=== PATIENT | female | born 1950 | race Two or more races ===

== ENCOUNTER 2018-01-29 19:19 | Inpatient (IN) | payer MEDICARE, OTHER ==
[~2018-01-29] VITALS: Ht 167.6 cm; Wt 76.2 kg
[2018-01-29 21:40] LABS: BASOPHILS # (AUTO) 0.1 K/uL (0.0-8.0); BASOPHILS % (AUTO) 0.5 % (0.0-2.0); EOSINOPHILS # (AUTO) 0.1 K/uL (0.0-0.7); EOSINOPHILS % (AUTO) 0.7 % (0.0-7.0); HEMATOCRIT 43.2 % (31.2-41.9); HEMOGLOBIN 14.5 g/dL (10.9-14.3); LYMPHOCYTES # (AUTO) 3.6 K/uL (20.0-40.0); LYMPHOCYTES % (AUTO) 25.8 % (20.5-51.5); MEAN CORPUSCULAR HEMOGLOBIN 30.1 uug (24.7-32.8); MEAN CORPUSCULAR HGB CONC 34 g/dL (32.3-35.6); MEAN CORPUSCULAR VOLUME 89.8 fL (75.5-95.3); MONOCYTES # (AUTO) 1.1 K/uL (2.0-10.0); MONOCYTES % (AUTO) 7.5 % (0.0-11.0); NEUTROPHILS # (AUTO) 9.2 K/uL (1.8-8.9); NEUTROPHILS % (AUTO) 65.5 % (38.5-71.5); PLATELET COUNT (AUTO) 245 K/uL (179-408); RED BLOOD CELL COUNT(AUTO) 4.81 MIL/uL (3.63-4.92)
[2018-01-29 21:48] LABS: CARBON DIOXIDE 27 mmol/L (21-32); CHLORIDE 104 mmol/L (98-107); CREATININE 0.6 mg/dL (0.6-1.3); GLUCOSE 142 mg/dL (74-106); UREA NITROGEN, BLOOD 21 mg/dL (7-18)
[2018-01-29 21:54] LABS: *BILIRUBIN,URIN NEGATIVE (NEGATIVE); *BLOOD, URINE Trace-intact (NEGATIVE); *CLARITY,URINE CLOUDY (CLEAR); *COLOR,URINE YELLOW (YELLOW); *KETONES,URINE 1+ (NEGATIVE); *PROTEIN,URINE NEGATIVE (NEGATIVE); LEUKOCYTE ESTERASE ,URINE 3+ (NEGATIVE); NITRITE, URINE NEGATIVE (NEGATIVE); UGLUCOSE NEGATIVE (NEGATIVE)
[2018-01-29 21:56] LABS: ETHANOL < 3 MG/DL (0-0)
[2018-01-29 22:00] LABS: ALANINE AMINOTRANSFERASE 35 U/L (14-59); ALKALINE PHOSPHATASE 99 U/L (50-136); ASPARTATE AMINOTRANSFERASE 25 U/L (15-37); BILIRUBIN,DIRECT 0.1 mg/dL (0.0-0.2); BILIRUBIN,TOTAL 0.5 mg/dL (0.2-1.0); TOTAL PROTEIN, SERUM 7.1 g/dL (6.4-8.2)
[2018-01-29 22:00] LABS: BACTERIA,URINE MODERATE /HPF (NONE SEEN); SQUAMOUS EPITHELIAL CELL,UR MANY /HPF (NONE SEEN); WBC,URINE 80-100 /HPF (0-3)
[2018-01-29 22:03] LABS: ACETAMINOPHEN < 2.0 ug/mL (10-30)
[2018-01-29 22:14] LABS: *AMPHETAMINE, URINE NEGATIVE (NEGATIVE); *BARBITURATE, URINE NEGATIVE (NEGATIVE); *CANNABINOID, URINE NEGATIVE (NEGATIVE); *COCCAINE, URINE NEGATIVE (NEGATIVE); *OPIATE, URINE NEGATIVE (NEGATIVE); *PHENCYCLIDINE SCREEN,URINE NEGATIVE (NEGATIVE)
[2018-01-29] MEDS ORDERED: CEPHALEXIN MONOHYDRATE 500 MG CAPSULE PO ONE (23:45)
[2018-01-29] MEDS ORDERED: CEPHALEXIN MONOHYDRATE 500 MG CAPSULE ONE (23:46)
[2018-01-30] MEDS ORDERED: BLOO-140 IN (00:49)
[2018-01-30] MEDS ORDERED: DEXT50DI8 IV (00:49)
[2018-01-30] MEDS ORDERED: LURA20TA PO (00:49)
[2018-01-30] MEDS ORDERED: GLUC1VIA4 IJ (00:49)
[2018-01-30] MEDS ORDERED: LOSA50TA21 PO (00:49)
[2018-01-30] MEDS ORDERED: TOLT4CAP PO (00:49)
[2018-01-30] MEDS ORDERED: QUET25TA PO (02:12)
[2018-01-30] MEDS ORDERED: TEMAZEPAM 7.5 MG CAPSULE PO PRN (02:30)
[2018-01-30] MEDS ORDERED: MAG HYDROX/AL HYDROX/SIMETH 30 ML LIQUID UDC PO PRN (02:30)
[2018-01-30] MEDS ORDERED: MAGNESIUM HYDROXIDE 30 ML LIQUID UDC PO PRN (02:30)
[2018-01-30] MEDS: ACETAMINOPHEN 325 MG TABLET PO PRN ×2 (02:54→11:41)
[2018-01-30 05:14] VITALS: BP 117/65
[2018-01-30 07:30] VITALS: BP 124/53
[2018-01-30] MEDS ORDERED: DEXTROSE 50% 50 ML DISP.SYRIN IV PRN (11:15)
[2018-01-30] MEDS: LOSARTAN POTASSIUM 50 MG TABLET PO SCH (11:45)
[2018-01-30] MEDS: INSULIN REGULAR, HUMAN 300 UNIT/3 ML VIAL SQ PRN ×2 (12:48→17:19)
[2018-01-30] MEDS: BLOOD SUGAR DIAGNOSTIC 1 EACH STRIP VI SCH ×3 (12:50→20:52)
[2018-01-30 15:11] VITALS: BP 138/62
[2018-01-30] MEDS ORDERED: IBUPROFEN 400 MG TABLET PO PRN (16:00)
[2018-01-30] MEDS: IBUPROFEN 400 MG TABLET PO PRN (17:48)
[2018-01-30] MEDS: CEPHALEXIN MONOHYDRATE 500 MG CAPSULE PO SCH (19:01)
[2018-01-30 20:00] VITALS: BP 139/73
[2018-01-30] MEDS: INSULIN REGULAR, HUMAN 300 UNITS/3 ML VIAL SQ PRN (20:57)
[2018-01-30] MEDS: INSULIN GLARGINE,HUM 300 UNITS/3 ML CARTRIDGE SQ SCH (20:58)
[2018-01-30] MEDS ORDERED: CARBAMAZEPINE 200 MG TABLET PO ONE (22:30)
[2018-01-30] MEDS ORDERED: ARIPIPRAZOLE 5 MG TABLET PO ONE (22:30)
[2018-01-31] MEDS: BLOOD SUGAR DIAGNOSTIC 1 EACH STRIP VI SCH ×4 (07:02→20:40)
[2018-01-31] MEDS: IBUPROFEN 400 MG TABLET PO PRN ×2 (07:57→21:06)
[2018-01-31 08:00] VITALS: BP 114/74
[2018-01-31] MEDS: LOSARTAN POTASSIUM 50 MG TABLET PO SCH (08:34)
[2018-01-31] MEDS: CEPHALEXIN MONOHYDRATE 500 MG CAPSULE PO SCH ×2 (08:34→17:51)
[2018-01-31] MEDS: CARBAMAZEPINE 200 MG TABLET PO SCH ×2 (08:35→20:41)
[2018-01-31] MEDS: TOLTERODINE LA 2 MG CAP.SR.24H PO SCH (08:35)
[2018-01-31] MEDS ORDERED: BENZTROPINE MESYLATE 1 MG TABLET PO SCH (09:00)
[2018-01-31] MEDS ORDERED: HALOPERIDOL 5 MG TABLET PO SCH (09:00)
[2018-01-31] MEDS: INSULIN REGULAR, HUMAN 300 UNIT/3 ML VIAL SQ PRN ×2 (12:04→17:34)
[2018-01-31 16:20] VITALS: BP 116/70
[2018-01-31 20:25] VITALS: BP 117/70
[2018-01-31] MEDS: ARIPIPRAZOLE 5 MG TABLET PO SCH (20:41)
[2018-01-31] MEDS: INSULIN REGULAR, HUMAN 300 UNITS/3 ML VIAL SQ PRN (20:46)
[2018-01-31] MEDS: INSULIN GLARGINE,HUM 300 UNITS/3 ML CARTRIDGE SQ SCH (20:46)
[2018-02-01] MEDS: BLOOD SUGAR DIAGNOSTIC 1 EACH STRIP VI SCH ×4 (06:34→21:35)
[2018-02-01 07:30] VITALS: BP 125/74
[2018-02-01] MEDS: LOSARTAN POTASSIUM 50 MG TABLET PO SCH (08:35)
[2018-02-01] MEDS: TOLTERODINE LA 2 MG CAP.SR.24H PO SCH (08:35)
[2018-02-01] MEDS: CEPHALEXIN MONOHYDRATE 500 MG CAPSULE PO SCH ×2 (08:35→17:19)
[2018-02-01] MEDS: CARBAMAZEPINE 200 MG TABLET PO SCH ×2 (08:36→22:16)
[2018-02-01] MEDS: IBUPROFEN 400 MG TABLET PO PRN ×2 (11:18→22:33)
[2018-02-01] MEDS: INSULIN REGULAR, HUMAN 300 UNIT/3 ML VIAL SQ PRN ×3 (12:03→22:01)
[2018-02-01 15:15] VITALS: BP 121/57
[2018-02-01] MEDS: INSULIN GLARGINE,HUM 300 UNITS/3 ML CARTRIDGE SQ SCH (21:23)
[2018-02-01 21:24] VITALS: BP 140/71
[2018-02-01] MEDS: ARIPIPRAZOLE 5 MG TABLET PO SCH (22:16)
[2018-02-01] MEDS: LORAZEPAM 1 MG TABLET PO PRN (22:33)
[2018-02-02] MEDS: BLOOD SUGAR DIAGNOSTIC 1 EACH STRIP VI SCH ×4 (06:44→21:35)
[2018-02-02 07:30] VITALS: BP 134/74
[2018-02-02] MEDS: LOSARTAN POTASSIUM 50 MG TABLET PO SCH (08:17)
[2018-02-02] MEDS: CEPHALEXIN MONOHYDRATE 500 MG CAPSULE PO SCH ×2 (08:17→16:23)
[2018-02-02] MEDS: ARIPIPRAZOLE 5 MG TABLET PO SCH ×2 (08:17→21:04)
[2018-02-02] MEDS: CARBAMAZEPINE 200 MG TABLET PO SCH (08:17)
[2018-02-02] MEDS: TOLTERODINE LA 2 MG CAP.SR.24H PO SCH (08:18)
[2018-02-02] MEDS: IBUPROFEN 400 MG TABLET PO PRN ×3 (08:58→21:45)
[2018-02-02] MEDS: ACETAMINOPHEN 325 MG TABLET PO PRN (10:58)
[2018-02-02] MEDS: INSULIN REGULAR, HUMAN 300 UNIT/3 ML VIAL SQ PRN ×2 (11:40→16:41)
[2018-02-02 15:43] VITALS: BP 142/68
[2018-02-02] MEDS: INSULIN REGULAR, HUMAN 300 UNITS/3 ML VIAL SQ PRN (21:42)
[2018-02-02] MEDS: INSULIN GLARGINE,HUM 300 UNITS/3 ML CARTRIDGE SQ SCH (21:44)
[2018-02-02 21:48] VITALS: BP 163/83
[2018-02-02 22:28] VITALS: BP 147/92
[2018-02-03 07:30] VITALS: BP 160/72
[2018-02-03] MEDS: BLOOD SUGAR DIAGNOSTIC 1 EACH STRIP VI SCH ×4 (07:45→20:31)
[2018-02-03] MEDS: ARIPIPRAZOLE 5 MG TABLET PO SCH (08:54)
[2018-02-03] MEDS: LOSARTAN POTASSIUM 50 MG TABLET PO SCH (08:54)
[2018-02-03] MEDS: TOLTERODINE LA 2 MG CAP.SR.24H PO SCH (08:54)
[2018-02-03] MEDS: CEPHALEXIN MONOHYDRATE 500 MG CAPSULE PO SCH ×2 (08:55→16:42)
[2018-02-03] MEDS: CARBAMAZEPINE 200 MG TABLET PO SCH ×3 (08:55→16:42)
[2018-02-03] MEDS: INSULIN REGULAR, HUMAN 300 UNIT/3 ML VIAL SQ PRN ×2 (11:45→16:45)
[2018-02-03] MEDS: HYDROCHLOROTHIAZIDE 25 MG TABLET PO SCH (13:19)
[2018-02-03 15:30] VITALS: BP 131/60
[2018-02-03 20:00] VITALS: BP 134/86
[2018-02-03] MEDS: INSULIN REGULAR, HUMAN 300 UNITS/3 ML VIAL SQ PRN (20:29)
[2018-02-03] MEDS: INSULIN GLARGINE,HUM 300 UNITS/3 ML CARTRIDGE SQ SCH (20:30)
[2018-02-03] MEDS: ARIPIPRAZOLE 10 MG TABLET PO SCH (20:30)
[2018-02-03] MEDS ORDERED: ARIPIPRAZOLE 5 MG TABLET PO SCH (21:00)
[2018-02-04] MEDS: BLOOD SUGAR DIAGNOSTIC 1 EACH STRIP VI SCH ×4 (06:33→20:30)
[2018-02-04 07:30] VITALS: BP 112/75
[2018-02-04] MEDS: TOLTERODINE LA 2 MG CAP.SR.24H PO SCH (09:00)
[2018-02-04] MEDS: CARBAMAZEPINE 200 MG TABLET PO SCH ×3 (09:01→17:10)
[2018-02-04] MEDS: LOSARTAN POTASSIUM 50 MG TABLET PO SCH (09:01)
[2018-02-04] MEDS: ARIPIPRAZOLE 5 MG TABLET PO SCH (09:01)
[2018-02-04] MEDS: CEPHALEXIN MONOHYDRATE 500 MG CAPSULE PO SCH ×2 (09:01→17:10)
[2018-02-04] MEDS: HYDROCHLOROTHIAZIDE 25 MG TABLET PO SCH (09:01)
[2018-02-04] MEDS: DOCUSATE SODIUM 100 MG CAPSULE PO SCH ×2 (11:45→20:30)
[2018-02-04] MEDS: INSULIN REGULAR, HUMAN 300 UNIT/3 ML VIAL SQ PRN (11:49)
[2018-02-04 15:21] VITALS: BP 108/48
[2018-02-04 19:30] VITALS: BP 120/59
[2018-02-04] MEDS: ARIPIPRAZOLE 10 MG TABLET PO SCH (20:30)
[2018-02-04] MEDS: INSULIN REGULAR, HUMAN 300 UNITS/3 ML VIAL SQ PRN (20:33)
[2018-02-04] MEDS: INSULIN GLARGINE,HUM 300 UNITS/3 ML CARTRIDGE SQ SCH (20:35)
[2018-02-05] MEDS: BLOOD SUGAR DIAGNOSTIC 1 EACH STRIP VI SCH ×4 (06:40→20:44)
[2018-02-05 07:30] VITALS: BP 121/74
[2018-02-05] MEDS: HYDROCHLOROTHIAZIDE 25 MG TABLET PO SCH (08:36)
[2018-02-05] MEDS: LOSARTAN POTASSIUM 50 MG TABLET PO SCH (08:37)
[2018-02-05] MEDS: TOLTERODINE LA 2 MG CAP.SR.24H PO SCH (08:37)
[2018-02-05] MEDS: ARIPIPRAZOLE 5 MG TABLET PO SCH (08:37)
[2018-02-05] MEDS: CARBAMAZEPINE 200 MG TABLET PO SCH ×3 (08:37→17:08)
[2018-02-05] MEDS: CEPHALEXIN MONOHYDRATE 500 MG CAPSULE PO SCH ×2 (08:37→17:08)
[2018-02-05] MEDS: DOCUSATE SODIUM 100 MG CAPSULE PO SCH ×2 (08:37→20:43)
[2018-02-05] MEDS: INSULIN REGULAR, HUMAN 300 UNIT/3 ML VIAL SQ PRN ×3 (10:14→17:10)
[2018-02-05] MEDS: IBUPROFEN 400 MG TABLET PO PRN (15:28)
[2018-02-05] MEDS: LORAZEPAM 1 MG TABLET PO PRN (20:00)
[2018-02-05 20:16] VITALS: BP 131/56
[2018-02-05] MEDS: INSULIN REGULAR, HUMAN 300 UNITS/3 ML VIAL SQ PRN (20:47)
[2018-02-05] MEDS: INSULIN GLARGINE,HUM 300 UNITS/3 ML CARTRIDGE SQ SCH (20:48)
[2018-02-05] MEDS ORDERED: ARIPIPRAZOLE 10 MG TABLET PO SCH (21:00)
[2018-02-06] MEDS: BLOOD SUGAR DIAGNOSTIC 1 EACH STRIP VI SCH ×2 (06:44→11:39)
[2018-02-06 07:12] LABS: BASOPHILS # (AUTO) 0.1 K/uL (0.0-8.0); EOSINOPHILS # (AUTO) 0.1 K/uL (0.0-0.7); EOSINOPHILS % (AUTO) 2.1 % (0.0-7.0); HEMATOCRIT 42.8 % (31.2-41.9); HEMOGLOBIN 14.5 g/dL (10.9-14.3); LYMPHOCYTES # (AUTO) 2.8 K/uL (20.0-40.0); LYMPHOCYTES % (AUTO) 41.9 % (20.5-51.5); MEAN CORPUSCULAR HEMOGLOBIN 30.8 uug (24.7-32.8); MEAN CORPUSCULAR HGB CONC 34 g/dL (32.3-35.6); MEAN CORPUSCULAR VOLUME 90.8 fL (75.5-95.3); MONOCYTES # (AUTO) 0.5 K/uL (2.0-10.0); MONOCYTES % (AUTO) 7.6 % (0.0-11.0); NEUTROPHILS # (AUTO) 3.2 K/uL (1.8-8.9); NEUTROPHILS % (AUTO) 47.4 % (38.5-71.5); PLATELET COUNT (AUTO) 292 K/uL (179-408); RED BLOOD CELL COUNT(AUTO) 4.71 MIL/uL (3.63-4.92); WHITE BLOOD COUNT (AUTO) 6.8 K/uL (3.8-11.8)
[2018-02-06 07:30] VITALS: BP 136/72
[2018-02-06 07:37] LABS: BILIRUBIN,TOTAL 0.3 mg/dL (0.2-1.0); CREATININE 0.6 mg/dL (0.6-1.3); MAGNESIUM 1.9 mg/dL (1.8-2.4); POTASSIUM 3.7 mmol/L (3.5-5.1)
[2018-02-06 07:43] LABS: THYROID STIMULATING HORMONE 1.232 mIU/mL (0.358-3.740)
[2018-02-06 08:55] VITALS: BP 136/72
[2018-02-06] MEDS: CEPHALEXIN MONOHYDRATE 500 MG CAPSULE PO SCH (08:55)
[2018-02-06] MEDS: CARBAMAZEPINE 200 MG TABLET PO SCH ×2 (08:55→12:04)
[2018-02-06] MEDS: HYDROCHLOROTHIAZIDE 25 MG TABLET PO SCH (08:55)
[2018-02-06] MEDS: LOSARTAN POTASSIUM 50 MG TABLET PO SCH (08:55)
[2018-02-06] MEDS: DOCUSATE SODIUM 100 MG CAPSULE PO SCH (08:56)
[2018-02-06] MEDS: TOLTERODINE LA 2 MG CAP.SR.24H PO SCH (08:56)
[2018-02-06] MEDS: INSULIN REGULAR, HUMAN 300 UNIT/3 ML VIAL SQ PRN (11:38)
== END 2018-02-06 14:38 | disposition home health service (06) | DRG 885 ==
LOC: ER 19:21 → GPS 01-30 00:18
PROVIDERS: ADMIT Psychiatry & Neurology Psychiatry
DX: F31.2 Bipolar disorder, current episode manic severe with psychotic features (principal); E10.65 Type 1 diabetes mellitus with hyperglycemia; G92 Toxic encephalopathy; N39.0 Urinary tract infection, site not specified; Z90.710 Acquired absence of both cervix and uterus; Z90.49 Acquired absence of other specified parts of digestive tract; Z79.4 Long term (current) use of insulin; Z91.81 History of falling; I10 Essential (primary) hypertension; Z91.14 Patient's other noncompliance with medication regimen; R45.850 Homicidal ideations; Z79.899 Other long term (current) drug therapy
CPT/HCPCS: 36415; 71045; 73501; 80307; 83735; 84100; 84443; 85025; 87086; 93005; A4663; G0480; G0480-TC; J1815

== ENCOUNTER 2018-03-16 19:51 | Inpatient (IN) | payer OTHER ==
[~2018-03-16] VITALS: Ht 167.6 cm; Wt 77.1 kg
[~2018-03-16 19:51] MED LIST: BLOO-140 IN; DEXT50DI8 IV; GLUC1VIA4 IJ; LOSA50TA21 PO; TOLT4CAP PO
--- NOTE | 2018-03-16 19:54 | NUR ---
Dr. Maldonado at bedside for MSE.
--- NOTE | 2018-03-16 20:11 | NUR ---
Code Stroke Activated.
--- NOTE | 2018-03-16 20:16 | NUR ---
Pt out of ER for CT, accompanied pt to CT.
--- NOTE | 2018-03-16 20:20 | NUR ---
TELESTROKE activated, Dr. Lynn (NEUROLOGY) will be paged.
[2018-03-16] MEDS ORDERED: RISP2TAB5 PO (20:31)
[2018-03-16] MEDS ORDERED: IV NORMAL SALINE 250 ML IV ONE (20:31)
[2018-03-16] MEDS ORDERED: SWABABLE VALVE TRANSFER SET EA MC ONE (20:31)
[2018-03-16] MEDS ORDERED: IOHEXOL 300MG/ML 100 ML INFUS..BTL ONE (20:31)
[2018-03-16] MEDS ORDERED: ROSU20TA PO (20:31)
[2018-03-16] MEDS ORDERED: NORMAL SALINE FLUSH 10 ML DISP.SYRIN ONE (20:31)
[2018-03-16] MEDS ORDERED: DIVA500T54 PO ×2 (20:31)
[2018-03-16] MEDS ORDERED: INSU100V7 SQ (20:36)
[2018-03-16 20:39] LABS: BASOPHILS # (AUTO) 0.1 K/uL (0.0-8.0); BASOPHILS % (AUTO) 0.9 % (0.0-2.0); EOSINOPHILS # (AUTO) 0.1 K/uL (0.0-0.7); EOSINOPHILS % (AUTO) 0.6 % (0.0-7.0); HEMATOCRIT 40.1 % (31.2-41.9); HEMOGLOBIN 13.7 g/dL (10.9-14.3); LYMPHOCYTES % (AUTO) 24.6 % (20.5-51.5); MEAN CORPUSCULAR HEMOGLOBIN 31.6 uug (24.7-32.8); MEAN CORPUSCULAR HGB CONC 34 g/dL (32.3-35.6); MEAN CORPUSCULAR VOLUME 92.5 fL (75.5-95.3); MONOCYTES # (AUTO) 0.9 K/uL (2.0-10.0); MONOCYTES % (AUTO) 7.1 % (0.0-11.0); NEUTROPHILS # (AUTO) 8.1 K/uL (1.8-8.9); NEUTROPHILS % (AUTO) 66.8 % (38.5-71.5); PLATELET COUNT (AUTO) 230 K/uL (179-408); RED BLOOD CELL COUNT(AUTO) 4.34 MIL/uL (3.63-4.92); WHITE BLOOD COUNT (AUTO) 12.1 K/uL (3.8-11.8)
--- NOTE | 2018-03-16 20:40 | NUR ---
Pt back to ER from CT.
[2018-03-16 20:47] LABS: CREATININE 0.8 mg/dL (0.6-1.3); POTASSIUM 3.6 mmol/L (3.5-5.1)
[2018-03-16] MEDS ORDERED: IOHEXOL 350 100 ML INFUS..BTL ONE (20:47)
--- NOTE | 2018-03-16 20:55 | NUR ---
[facility] MD Dr. Raman assessing patient.
[2018-03-16 21:02] LABS: BILIRUBIN,DIRECT 0.1 mg/dL (0.0-0.2); BILIRUBIN,TOTAL 0.4 mg/dL (0.2-1.0); TOTAL PROTEIN, SERUM 7.1 g/dL (6.4-8.2)
--- NOTE | 2018-03-16 21:09 | NUR ---
Dr. Maldonado speaking with Dr. Raman from [facility].
[2018-03-16 21:19] LABS: ETHANOL < 3 MG/DL (0-0)
--- NOTE | 2018-03-16 21:20 | NUR ---
Pt able to pass swallow test.
[2018-03-16 21:23] LABS: ACETAMINOPHEN < 2.0 ug/mL (10-30)
--- NOTE | 2018-03-16 21:32 | NUR ---
Dr. Maldonado on panel call with Belinda Lee NP.
[2018-03-16 21:33] LABS: THYROID STIMULATING HORMONE 1.355 mIU/mL (0.358-3.740)
--- NOTE | 2018-03-16 22:01 | NUR ---
Pt unable to provide urine sample.
--- NOTE | 2018-03-16 22:40 | NUR ---
Report given to Silvia STANLEY Tele.
--- NOTE | 2018-03-16 22:50 | NUR ---
RECEIVED PT FROM ER VIA GURNEY. PT SHOWS NO SIGNS OF DISTRESS.UNDER THE CARE OF KELLI RAVI NP. DX: AMS. IV INTACT AND PATENT. BELONGING LIST DONE. ADMISSION PROCESS AND CARE PLAN INITIATED. CHCF ASSESSMENT DONE. SAFETY AND COMFORT PROVIDED. WILL CONTINUE TO MONITOR.
[2018-03-16] MEDS ORDERED: ZOLPIDEM 5 MG TABLET PO PRN (23:00)
[2018-03-16] MEDS ORDERED: ACETAMINOPHEN 325 MG TABLET PO PRN (23:00)
[2018-03-16] MEDS ORDERED: MAGNESIUM HYDROXIDE 30 ML LIQUID UDC PO PRN (23:00)
[2018-03-16] MEDS ORDERED: Z GUARD REMEDY PASTE 57 GM TUBE TOP PRN (23:00)
[2018-03-16] MEDS ORDERED: ONDANSETRON 4 MG/2 ML VIAL IV PRN (23:00)
[2018-03-16 23:55] LABS: CREATININE 0.8 mg/dL (0.6-1.3); POTASSIUM 3.5 mmol/L (3.5-5.1)
[2018-03-17] VITALS: BP 137/57
[2018-03-17] MEDS ORDERED: BLOOD SUGAR DIAGNOSTIC 1 EACH STRIP VI SCH
[2018-03-17 00:07] LABS: BILIRUBIN,TOTAL 0.3 mg/dL (0.2-1.0); TOTAL PROTEIN, SERUM 6.6 g/dL (6.4-8.2)
[2018-03-17 00:08] LABS: THYROID STIMULATING HORMONE 1.829 mIU/mL (0.358-3.740)
[2018-03-17 04:00] VITALS: BP 147/64
--- NOTE | 2018-03-17 05:07 | NUR ---
CALLED DR. JONES FOR DIET ORDER FOR THE PT. ORDER CARDIAC DIET PT CAN SWALLOW MEDICATION. PT STABLE WILL CONTINUE TO MONITOR.
--- NOTE | 2018-03-17 06:16 | NUR ---
PT SHOWS NO SIGNS OF DISTRESS. IV INTACT AND PATENT. PRESCRIBED MEDICATION GIVEN AND PT TOLERATED IT WELL. URINE SPECIMEN NEEDED.SAFETY AND COMFORT PROVIDED.ALL NEEDS ARE MET. WILL ENDORSE TO INCOMING NURSE FOR CONTINUITY OF CARE.
[2018-03-17] MEDS: BLOOD SUGAR DIAGNOSTIC 1 EACH STRIP VI SCH ×4 (06:44→21:14)
[2018-03-17 07:23] LABS: CREATININE 0.5 mg/dL (0.6-1.3); MAGNESIUM 1.9 mg/dL (1.8-2.4); PHOSPHOROUS 3.5 mg/dL (2.5-4.9); POTASSIUM 3.4 mmol/L (3.5-5.1)
[2018-03-17 07:39] LABS: BASOPHILS # (AUTO) 0.1 K/uL (0.0-8.0); BASOPHILS % (AUTO) 0.6 % (0.0-2.0); EOSINOPHILS # (AUTO) 0.1 K/uL (0.0-0.7); EOSINOPHILS % (AUTO) 1.3 % (0.0-7.0); HEMATOCRIT 38.8 % (31.2-41.9); HEMOGLOBIN 13.2 g/dL (10.9-14.3); LYMPHOCYTES % (AUTO) 32.7 % (20.5-51.5); MEAN CORPUSCULAR HEMOGLOBIN 31.3 uug (24.7-32.8); MEAN CORPUSCULAR HGB CONC 34 g/dL (32.3-35.6); MEAN CORPUSCULAR VOLUME 92.2 fL (75.5-95.3); MONOCYTES # (AUTO) 0.7 K/uL (2.0-10.0); MONOCYTES % (AUTO) 7.7 % (0.0-11.0); NEUTROPHILS # (AUTO) 5.2 K/uL (1.8-8.9); NEUTROPHILS % (AUTO) 57.7 % (38.5-71.5); PLATELET COUNT (AUTO) 219 K/uL (179-408); RED BLOOD CELL COUNT(AUTO) 4.21 MIL/uL (3.63-4.92); WHITE BLOOD COUNT (AUTO) 9.1 K/uL (3.8-11.8)
[2018-03-17] MEDS: DIVALPROEX ER 500 MG TAB.SR.24H PO SCH ×2 (08:50→17:20)
[2018-03-17] MEDS: ASPIRIN 81 MG TAB.CHEW PO SCH (08:50)
[2018-03-17] MEDS: LOSARTAN POTASSIUM 50 MG TABLET PO SCH (08:52)
[2018-03-17] MEDS: ENOXAPARIN SODIUM 40 MG/0.4 ML DISP.SYRIN SQ SCH (08:55)
--- NOTE | 2018-03-17 09:15 | NUR ---
PATIENT SEEN BY THE PHYSICAL THERAPY FOR AMBULATION IN THE [address] WITH FRONT WHEEL WALKER PATIENT REQUIRE CONTACT GUARD ASSIST RIGHT ARM IS WEAK BUT ABLE TO LIFT AND GOOD PATIENT MANAGER ALERT BUT FORGETFUL REQUIRES FREQUENT REDIRECTION LOOKING FOR HER X ABLE TO VERBALISE NEEDS INSTRUCTED TO STAY IN BED FOR SAFETY BED ALARM ACTIVATED PATIENT TENDS TO GET OUT OF BED UNATTENDED MADE COMFORTABLE AND WILL CONTINUE TO OBSERVE.
[2018-03-17 09:55] LABS: *BILIRUBIN,URIN NEGATIVE (NEGATIVE); *BLOOD, URINE NEGATIVE (NEGATIVE); *CLARITY,URINE SLIGHTLY CLOUDY (CLEAR); *COLOR,URINE YELLOW (YELLOW); *KETONES,URINE 1+ (NEGATIVE); *PROTEIN,URINE NEGATIVE (NEGATIVE); LEUKOCYTE ESTERASE ,URINE NEGATIVE (NEGATIVE); NITRITE, URINE NEGATIVE (NEGATIVE); UGLUCOSE TRACE (NEGATIVE)
[2018-03-17 10:12] LABS: *AMPHETAMINE, URINE NEGATIVE (NEGATIVE); *BARBITURATE, URINE NEGATIVE (NEGATIVE); *CANNABINOID, URINE NEGATIVE (NEGATIVE); *COCCAINE, URINE NEGATIVE (NEGATIVE); *OPIATE, URINE NEGATIVE (NEGATIVE); *PHENCYCLIDINE SCREEN,URINE NEGATIVE (NEGATIVE)
[2018-03-17 10:13] LABS: RBC,URINE 0-3 /HPF (0-3); WBC,URINE 0-3 /HPF (0-3)
[2018-03-17 10:14] LABS: MUCUS,URINE MODERATE /LPF (0-FEW); SQUAMOUS EPITHELIAL CELL,UR FEW /HPF (NONE SEEN)
[2018-03-17 10:48] LABS: BACTERIA,URINE FEW /HPF (NONE SEEN)
[2018-03-17 11:18] VITALS: BP 132/57
--- NOTE | 2018-03-17 11:45 | NUR ---
BLOOD SUGAR AT THIS TIME IS 205 KELLI CHAVEZ NOTIFIED STATED WILL SEE PATIENT NO NEW ORDERS AT THIS TIME.
[2018-03-17] MEDS ORDERED: POTASSIUM CHLORIDE 20 MEQ TAB.PRT.SR PO ONE (12:30)
[2018-03-17] MEDS ORDERED: DEXTROSE 50% 50 ML DISP.SYRIN IV PRN (12:30)
--- NOTE | 2018-03-17 13:32 | NUR ---
PATIENT SEEN BY DR RM WITH ORDER FOR MRI OF THE BRAIN AND PER BHARATI AT [facility] UNABLE TO DO TODAY DUE TO MRI MACHINE DOWN AT THIS TIME.
[2018-03-17 15:48] VITALS: BP 131/49
[2018-03-17] MEDS: INSULIN REGULAR, HUMAN 300 UNIT/3 ML VIAL SQ PRN ×2 (16:33→21:18)
--- NOTE | 2018-03-17 18:00 | NUR ---
PATIENT IS CONFUSED AND DISORIENTED BUT ALERT TO SELF GETTING IN AND OUT OF BED SO MANY TIMES WITH POOR SAFETY AWARENESS LYING IN BED WITH HER FEET TOWARDS THE HEAD OF THE BED AT RISKS FOR FALLS AND INJURIES PATIENT WILL BE ON ONE AND ONE SITTER FOR AGENT TELEGRAPHER AWARE.
[2018-03-17 19:00] VITALS: BP 124/60
--- NOTE | 2018-03-17 19:10 | NUR ---
RECEIVED PT AWAKE, ALERT, ORIENTEDX2. PT SHOWS NO SIGNS OF DISTRESS. 1:1 SITTER FOR SAFETY. SAFETY AND COMFORT PROVIDED. WILL CONTINUE TO MONITOR.
[2018-03-17] MEDS: ATORVASTATIN 20 MG TABLET PO SCH (21:09)
[2018-03-17] MEDS: risperiDONE 2 MG TABLET PO SCH (21:09)
--- NOTE | 2018-03-17 22:00 | NUR ---
HANDS OFF REPORT TO ANOTHER RN. PT STABLE WITH NO ACUTE DISTRESS. SITTER AT BEDSIDE ENDORSE ABOUT THE ABILIFY OF THE PT. GAVE THE NUMBER OF THE .PRESCRIBED MEDICATION GIVEN AND PT TOLERATED IT WELL. SAFETY AND COMFORT PROVIDED. WILL CONTINUE TO MONITOR.
--- NOTE | 2018-03-17 22:30 | NUR ---
Received patient asleep, no SOB noted. Vital signs WNL. No pain complain 1:1 sitter in room.
[2018-03-17] MEDS ORDERED: ARIP20TA4 PO (22:42)
[2018-03-18] VITALS: BP 138/59
[2018-03-18 04:00] VITALS: BP 136/68
[2018-03-18 06:34] LABS: BASOPHILS % (AUTO) 0.6 % (0.0-2.0); EOSINOPHILS # (AUTO) 0.1 K/uL (0.0-0.7); EOSINOPHILS % (AUTO) 1.8 % (0.0-7.0); HEMATOCRIT 40.3 % (31.2-41.9); HEMOGLOBIN 13.5 g/dL (10.9-14.3); LYMPHOCYTES # (AUTO) 2.8 K/uL (20.0-40.0); LYMPHOCYTES % (AUTO) 36.8 % (20.5-51.5); MEAN CORPUSCULAR HEMOGLOBIN 31.1 uug (24.7-32.8); MEAN CORPUSCULAR HGB CONC 34 g/dL (32.3-35.6); MEAN CORPUSCULAR VOLUME 92.5 fL (75.5-95.3); MONOCYTES # (AUTO) 0.5 K/uL (2.0-10.0); MONOCYTES % (AUTO) 6.8 % (0.0-11.0); NEUTROPHILS # (AUTO) 4.2 K/uL (1.8-8.9); PLATELET COUNT (AUTO) 211 K/uL (179-408); RED BLOOD CELL COUNT(AUTO) 4.35 MIL/uL (3.63-4.92); WHITE BLOOD COUNT (AUTO) 7.7 K/uL (3.8-11.8)
[2018-03-18] MEDS: BLOOD SUGAR DIAGNOSTIC 1 EACH STRIP VI SCH ×4 (06:38→20:19)
[2018-03-18 06:42] LABS: CREATININE 0.6 mg/dL (0.6-1.3); MAGNESIUM 1.8 mg/dL (1.8-2.4); PHOSPHOROUS 3.5 mg/dL (2.5-4.9); POTASSIUM 3.7 mmol/L (3.5-5.1)
--- NOTE | 2018-03-18 07:00 | NUR ---
Slept 7 hours today. No acute resp distress, Sinus rhythm on the monitor. 1:1 sitter in room for patient's safety.
[2018-03-18] MEDS: DIVALPROEX ER 500 MG TAB.SR.24H PO SCH ×2 (08:01→17:13)
[2018-03-18] MEDS: ASPIRIN 81 MG TAB.CHEW PO SCH (08:01)
[2018-03-18] MEDS: INSULIN REGULAR, HUMAN 300 UNIT/3 ML VIAL SQ PRN ×4 (08:01→20:20)
[2018-03-18] MEDS: LOSARTAN POTASSIUM 50 MG TABLET PO SCH (08:02)
[2018-03-18] MEDS: ENOXAPARIN SODIUM 40 MG/0.4 ML DISP.SYRIN SQ SCH (08:03)
--- NOTE | 2018-03-18 08:45 | NUR ---
SLEPT AT LONG INTERVALS AWAKEN PATIENT UP ATE BREAKFAST AND DUE MEDICATIONS GIVEN ALERT BUT SEEMS DISORIENTED AT THIS TIME BUT EASILY REDIRECTABLE REMAIN ON ONE ON ONE SITTER FOR SAFETY MADE COMFORTABLE AND WILL CONTINUE TO OBSERVE.
--- NOTE | 2018-03-18 10:46 | NUR ---
CALL RECEIVED FROM BHARATI FROM [facility] STATED THAT THE MRI MACHINE IS STILL DOWN BUT WILL LET ME KNOW TODAY WHEN HE IR READY TO RECEIVE PATIENT.
[2018-03-18 11:14] VITALS: BP 134/53
--- NOTE | 2018-03-18 12:17 | NUR ---
PATIENT IS SITTING UP ON THE CHAIR EATING LUNCH SEEN BY KRISTINE CHIP PERSON WITH NEW ORDERS AND NOTED
[2018-03-18 13:43] LABS: *BILIRUBIN,URIN NEGATIVE (NEGATIVE); *BLOOD, URINE NEGATIVE (NEGATIVE); *CLARITY,URINE CLEAR (CLEAR); *COLOR,URINE YELLOW (YELLOW); *KETONES,URINE 1+ (NEGATIVE); *PROTEIN,URINE NEGATIVE (NEGATIVE); *UROBILINOGEN,URINE 0.2 E.U./dl (NORMAL); LEUKOCYTE ESTERASE ,URINE NEGATIVE (NEGATIVE); NITRITE, URINE NEGATIVE (NEGATIVE); PH,URINE 6.5 (5.0-8.0)
[2018-03-18 13:57] LABS: UGLUCOSE 3+ (NEGATIVE)
[2018-03-18 14:03] LABS: RBC,URINE 0-3 /HPF (0-3)
[2018-03-18 14:04] LABS: BACTERIA,URINE NONE SEEN /HPF (NONE SEEN); MUCUS,URINE FEW /LPF (0-FEW); SQUAMOUS EPITHELIAL CELL,UR FEW /HPF (NONE SEEN); TRANSITIONAL EPI CELLS,URINE FEW /LPF (NONE SEEN); YEAST,URINE FEW /HPF (NONE SEEN)
[2018-03-18 15:40] VITALS: BP 146/44
[2018-03-18] MEDS ORDERED: IV NS 1000 ML 1,000 ML IV ONE (15:45)
--- NOTE | 2018-03-18 15:52 | NUR ---
PATIENT SEEN AND EXAMINED BY KRISTINE MODEL MAKER FIREARMS WITH NEW ORDERS AND NOTED STILL AWAITING FOR NEWS FROM THE [facility]
--- NOTE | 2018-03-18 18:58 | NUR ---
SPOKE WITH PATIENTS OVER THE PHONE AND FILLED OUT THE MRI QUESTIONAIRE PATIENT WAS NOT ABLE TO PROVIDE INFORMATION DOCUMENTED AND FILED.
[2018-03-18 19:29] VITALS: BP 151/70
--- NOTE | 2018-03-18 19:30 | NUR ---
Received patient in stable condition with no acute distress. Patient noted with confusion, restless, & agitated at start of shift. 1:1 sitter at the bedside for safety. Family member at the bedside. Noted with right AC 18G IV site running with NS at 100cc/hr. Room checked for safety at start of shift. Bed in low position, locked, x2 side rails up. Will continue to monitor through shift.
--- NOTE | 2018-03-18 20:15 | NUR ---
Spoke with Anile from [facility] regarding patient's MRI. Patient is scheduled for an MRI at [facility] at 0900 03/19/18. Patient to be picked up at 0830. Will endorse information to day shift nurse on duty in the AM.
[2018-03-18] MEDS: ATORVASTATIN 20 MG TABLET PO SCH (20:19)
[2018-03-18] MEDS: risperiDONE 2 MG TABLET PO SCH (20:19)
[2018-03-18] MEDS: INSULIN GLARGINE,HUM 300 UNITS/3 ML CARTRIDGE SQ SCH (20:20)
[2018-03-19 05:13] VITALS: BP 134/60
[2018-03-19 06:18] LABS: BASOPHILS % (AUTO) 0.2 % (0.0-2.0); EOSINOPHILS % (AUTO) 0.1 % (0.0-7.0); HEMATOCRIT 39.5 % (31.2-41.9); HEMOGLOBIN 13.5 g/dL (10.9-14.3); LYMPHOCYTES # (AUTO) 0.7 K/uL (20.0-40.0); LYMPHOCYTES % (AUTO) 3.8 % (20.5-51.5); MEAN CORPUSCULAR HEMOGLOBIN 30.8 uug (24.7-32.8); MEAN CORPUSCULAR HGB CONC 34 g/dL (32.3-35.6); MEAN CORPUSCULAR VOLUME 90.2 fL (75.5-95.3); MONOCYTES # (AUTO) 0.8 K/uL (2.0-10.0); MONOCYTES % (AUTO) 4.4 % (0.0-11.0); NEUTROPHILS % (AUTO) 91.5 % (38.5-71.5); PLATELET COUNT (AUTO) 205 K/uL (179-408); RED BLOOD CELL COUNT(AUTO) 4.38 MIL/uL (3.63-4.92); WHITE BLOOD COUNT (AUTO) 18.6 K/uL (3.8-11.8)
[2018-03-19] MEDS: BLOOD SUGAR DIAGNOSTIC 1 EACH STRIP VI SCH ×4 (06:37→20:35)
--- NOTE | 2018-03-19 06:44 | NUR ---
Blood sugar this AM at 221. No s/s of hyper/hypoglycemia during shift. Will endorse to day shift nurse to cover patient with insulin with breakfast tray. Patient remained stable with no acute distress. Vital signs within range. All needs attended to promptly. Kept clean & dry. Medications administered per MD order. 1:1 sitter at the bedside for safety. Safety & comfort measures implemented. Will endorse accordingly.
[2018-03-19 06:53] LABS: CREATININE 0.7 mg/dL (0.6-1.3)
[2018-03-19 08:00] VITALS: BP 146/64
[2018-03-19] MEDS: INSULIN REGULAR, HUMAN 300 UNIT/3 ML VIAL SQ PRN ×4 (08:00→20:42)
[2018-03-19] MEDS: ENOXAPARIN SODIUM 40 MG/0.4 ML DISP.SYRIN SQ SCH (08:01)
[2018-03-19] MEDS: DIVALPROEX ER 500 MG TAB.SR.24H PO SCH ×2 (08:01→17:18)
[2018-03-19] MEDS: LOSARTAN POTASSIUM 50 MG TABLET PO SCH (08:01)
[2018-03-19] MEDS: ASPIRIN 81 MG TAB.CHEW PO SCH (08:01)
--- NOTE | 2018-03-19 10:10 | NUR ---
Pt left to [facility] for MRI via [facility] accompanied by 2 golf cart assembler
--- NOTE | 2018-03-19 11:42 | NUR ---
Receive patient back from [facility] via [facility] accompanied by 2 chief nurse
[2018-03-19] MEDS: CEFTRIAXONE 1 G in IV DEXTROSE 5% 50 ML IV SCH (11:55)
[2018-03-19 12:00] VITALS: BP 140/65
[2018-03-19 14:10] VITALS: BP 160/70
--- NOTE | 2018-03-19 14:10 | NUR ---
Per OT, Pt BP 160/70 at the time of session. PANEL FITTER aware, waiting for orders
[2018-03-19] MEDS ORDERED: CLONIDINE HCL 0.1 MG TABLET PO PRN (14:30)
--- NOTE | 2018-03-19 14:30 | NUR ---
Per Dr. Tolbert, order of clonidine PO tab if SBP > 160. Will continue to monitor BP
[2018-03-19 15:31] VITALS: BP 151/79
--- NOTE | 2018-03-19 18:20 | NUR ---
Patient sitting up comfortably in bed. IV on left forearm intact and patent, no signs of redness or swelling. Blood pressure controlled. Tolerated prescribed medications well. Pt has no complaints at this time. Safety precautions and comfort measures implemented. 1:1 sitter at bedside for safety. Will endorse to shift coordinator nurse for continuity of care.
--- NOTE | 2018-03-19 19:53 | NUR ---
PATIENT IS AWAKE IN BED, AAOX1 WITH CONFUSION AND VERY LETHARGIC AND WEAK. NO S/S OF PAIN OR ACUTE DISTRESS ON ASSESSMENT. SITTER AT BEDSIDE FOR SAFETY. WILL CONTINUE TO MONITOR PATIENT
[2018-03-19 20:00] VITALS: BP 144/72
[2018-03-19] MEDS: ATORVASTATIN 20 MG TABLET PO SCH (20:35)
[2018-03-19] MEDS: risperiDONE 2 MG TABLET PO SCH (20:35)
[2018-03-19] MEDS: INSULIN GLARGINE,HUM 300 UNITS/3 ML CARTRIDGE SQ SCH (20:41)
[2018-03-20 04:00] VITALS: BP 140/62
[2018-03-20] MEDS: BLOOD SUGAR DIAGNOSTIC 1 EACH STRIP VI SCH ×4 (06:22→21:17)
--- NOTE | 2018-03-20 06:35 | NUR ---
PATIENT SLEPT WELL ON THIS SHIFT, CONTINUES TO BE CONFUSED BUT ABLE TO FOLLOW SIMPLE DIRECTIONS. NO S/S OF PAIN OR ACUTE DISTRESS NOTED ON THIS SHIFT. SITTER REMAINS AT BEDSIDE FOR SAFETY
[2018-03-20 06:39] LABS: BASOPHILS # (AUTO) 0.1 K/uL (0.0-8.0); BASOPHILS % (AUTO) 0.6 % (0.0-2.0); EOSINOPHILS # (AUTO) 0.1 K/uL (0.0-0.7); EOSINOPHILS % (AUTO) 0.8 % (0.0-7.0); HEMATOCRIT 41.5 % (31.2-41.9); HEMOGLOBIN 14.1 g/dL (10.9-14.3); LYMPHOCYTES # (AUTO) 1.6 K/uL (20.0-40.0); LYMPHOCYTES % (AUTO) 18.8 % (20.5-51.5); MEAN CORPUSCULAR HEMOGLOBIN 31.3 uug (24.7-32.8); MEAN CORPUSCULAR HGB CONC 34 g/dL (32.3-35.6); MEAN CORPUSCULAR VOLUME 92.3 fL (75.5-95.3); MONOCYTES % (AUTO) 11.1 % (0.0-11.0); NEUTROPHILS % (AUTO) 68.7 % (38.5-71.5); PLATELET COUNT (AUTO) 194 K/uL (179-408); WHITE BLOOD COUNT (AUTO) 8.7 K/uL (3.8-11.8)
[2018-03-20 06:42] LABS: CREATININE 0.5 mg/dL (0.6-1.3); POTASSIUM 3.7 mmol/L (3.5-5.1)
[2018-03-20] MEDS: INSULIN REGULAR, HUMAN 300 UNIT/3 ML VIAL SQ PRN ×4 (07:47→21:22)
--- NOTE | 2018-03-20 07:50 | NUR ---
PATIENT IS AWAKE AND ALERT AT THIS TIME, PATIENT IS ORIENTED TO SELF, PLACE, PARTIALLY TO TIME, PATIENT IS ABLE TO VERBALIZE MONTH AND DATE. PATIENT NOTED ABLE TO SMILE AND INTERACT AT THIS TIME,PATIENT NOTED TO HAVE SOME DROOPING NOTED ON RIGHT EYELID, PATIENT ABLE TO RAISE EYEBROWS , FEEDING HERSELF. SPEECH SOMEWHAT DELAYED IN RESPONDING,IMPROVING WITH MORE INTERACTION CONTINUE TO MONITOR.
[2018-03-20] MEDS: DIVALPROEX ER 500 MG TAB.SR.24H PO SCH ×2 (08:01→17:02)
[2018-03-20] MEDS: ASPIRIN 81 MG TAB.CHEW PO SCH (08:01)
[2018-03-20 08:05] VITALS: BP 137/59
[2018-03-20] MEDS: LOSARTAN POTASSIUM 50 MG TABLET PO SCH (08:05)
[2018-03-20] MEDS: ENOXAPARIN SODIUM 40 MG/0.4 ML DISP.SYRIN SQ SCH (08:08)
[2018-03-20] MEDS: CEFTRIAXONE 1 G in IV DEXTROSE 5% 50 ML IV SCH (09:56)
[2018-03-20 11:33] VITALS: BP 116/49
--- NOTE | 2018-03-20 12:10 | NUR ---
URINE COLLECTED VIA STRAIGHT CATH, EXPLAINED PROCEDURE,QUESTIONS AND CONCERNS ADDRESSED.
[2018-03-20 15:59] VITALS: BP 118/47
[2018-03-20 20:00] VITALS: BP 132/61
[2018-03-20] MEDS ORDERED: risperiDONE 2 MG TABLET PO SCH (21:00)
[2018-03-20] MEDS: ATORVASTATIN 20 MG TABLET PO SCH (21:17)
[2018-03-20] MEDS: risperiDONE 1 MG TABLET PO SCH (21:17)
[2018-03-20] MEDS: INSULIN GLARGINE,HUM 300 UNITS/3 ML CARTRIDGE SQ SCH (21:20)
--- NOTE | 2018-03-20 21:34 | NUR ---
PATIENT IS AWAKE IN BED, AAOX2 WITH CONFUSION BUT ABLE TO FOLLOW SIMPLE DIRECTIONS. NO S/S OF PAIN OR ACUTE DISTRESS ON ASSESSMENT. 1:1 SITTER AT BEDSIDE FOR SAFETY. WILL CONTINUE TO MONITOR PATIENT
[2018-03-21 03:50] VITALS: BP 135/58
[2018-03-21] MEDS: BLOOD SUGAR DIAGNOSTIC 1 EACH STRIP VI SCH ×4 (06:13→20:42)
--- NOTE | 2018-03-21 06:14 | NUR ---
PATIENT SLEPT WELL ON THIS SHIFT, CONTINUES TO HAVE EPISODES OF CONFUSION BUT ABLE TO REDIRECT. NO S/S OF PAIN OR DISTRESS ON THIS SHIFT. SITTER REMAINS AT BEDSIDE FOR SAFETY
[2018-03-21 06:30] LABS: BASOPHILS # (AUTO) 0.1 K/uL (0.0-8.0); BASOPHILS % (AUTO) 0.7 % (0.0-2.0); EOSINOPHILS # (AUTO) 0.2 K/uL (0.0-0.7); EOSINOPHILS % (AUTO) 1.9 % (0.0-7.0); HEMATOCRIT 40.7 % (31.2-41.9); HEMOGLOBIN 13.9 g/dL (10.9-14.3); LYMPHOCYTES # (AUTO) 2.6 K/uL (20.0-40.0); LYMPHOCYTES % (AUTO) 30.1 % (20.5-51.5); MEAN CORPUSCULAR HEMOGLOBIN 31.4 uug (24.7-32.8); MEAN CORPUSCULAR HGB CONC 34 g/dL (32.3-35.6); MEAN CORPUSCULAR VOLUME 91.8 fL (75.5-95.3); MONOCYTES % (AUTO) 11.4 % (0.0-11.0); NEUTROPHILS # (AUTO) 4.8 K/uL (1.8-8.9); NEUTROPHILS % (AUTO) 55.9 % (38.5-71.5); PLATELET COUNT (AUTO) 190 K/uL (179-408); RED BLOOD CELL COUNT(AUTO) 4.43 MIL/uL (3.63-4.92); WHITE BLOOD COUNT (AUTO) 8.6 K/uL (3.8-11.8)
[2018-03-21 06:47] LABS: CREATININE 0.5 mg/dL (0.6-1.3); POTASSIUM 3.6 mmol/L (3.5-5.1)
[2018-03-21 07:21] VITALS: BP 132/51
[2018-03-21] MEDS ORDERED: DIVALPROEX ER 500 MG TAB.SR.24H PO SCH ×2 (08:00→18:00)
[2018-03-21] MEDS: DIVALPROEX 250 MG TABLET.DR PO SCH ×2 (08:01→16:47)
[2018-03-21] MEDS: ASPIRIN 81 MG TAB.CHEW PO SCH (08:01)
[2018-03-21] MEDS: LOSARTAN POTASSIUM 50 MG TABLET PO SCH (08:02)
[2018-03-21] MEDS: INSULIN REGULAR, HUMAN 300 UNIT/3 ML VIAL SQ PRN ×4 (08:05→20:48)
[2018-03-21] MEDS: ENOXAPARIN SODIUM 40 MG/0.4 ML DISP.SYRIN SQ SCH (08:15)
[2018-03-21] MEDS ORDERED: risperiDONE 0.5 MG TABLET PO SCH (09:00)
[2018-03-21] MEDS: CEFTRIAXONE 1 G in IV DEXTROSE 5% 50 ML IV SCH (09:38)
[2018-03-21] MEDS ORDERED: INSU100V7 SQ (11:47)
[2018-03-21] MEDS ORDERED: CEPH500C2 PO (11:47)
[2018-03-21 11:57] VITALS: BP 122/54
[2018-03-21 15:56] VITALS: BP 120/63
--- NOTE | 2018-03-21 16:49 | NUR ---
Pt stated she saw a bug on my shoulder while giving her scheduled 1700 medication
[2018-03-21] MEDS ORDERED: DIVALPROEX 500 MG TABLET.DR PO SCH ×2 (18:00→21:00)
[2018-03-21 19:47] VITALS: BP 136/61
[2018-03-21] MEDS: INSULIN GLARGINE,HUM 300 UNITS/3 ML CARTRIDGE SQ SCH (20:47)
[2018-03-21] MEDS: ATORVASTATIN 20 MG TABLET PO SCH (20:47)
[2018-03-21] MEDS: risperiDONE 1 MG TABLET PO SCH (20:47)
--- NOTE | 2018-03-21 22:00 | NUR ---
Received patient from welder 2nd shift nurse after med pass. Patient in stable condition with no acute distress, lying comfortably. 1:1 sitter at the bedside for safety. Pertinent assessment completed. A/Ox1-2 with periods of confusion. Noted with left forearm 22G IV site which is locked, patent, & flushing well. Bed in low position, locked, x2 side rails up. Will continue to monitor through shift.
[2018-03-22 04:00] VITALS: BP 134/67
--- NOTE | 2018-03-22 06:28 | NUR ---
Patient stable through out shift. Slept well during the night. 1:1 sitter at the bedside for safety. Cooperative & compliant with care. Vital signs within range. Blood sugar this AM at 133. No s/s of hyper/hypoglycemia noted during shift. Will endorse to day shift nurse to cover patient with breakfast tray. Kept clean & dry, changed per soiling. Safety & comfort measures provided.
[2018-03-22] MEDS: BLOOD SUGAR DIAGNOSTIC 1 EACH STRIP VI SCH ×2 (06:47→11:37)
[2018-03-22] MEDS: ASPIRIN 81 MG TAB.CHEW PO SCH (08:09)
[2018-03-22] MEDS: DIVALPROEX 250 MG TABLET.DR PO SCH (08:10)
[2018-03-22] MEDS: LOSARTAN POTASSIUM 50 MG TABLET PO SCH (08:11)
[2018-03-22] MEDS: ENOXAPARIN SODIUM 40 MG/0.4 ML DISP.SYRIN SQ SCH (08:13)
[2018-03-22] MEDS ORDERED: DIVA500T2 PO (09:10)
[2018-03-22] MEDS ORDERED: DIVA250T4 PO (09:10)
[2018-03-22] MEDS ORDERED: RISP1TAB7 PO (09:10)
[2018-03-22 11:17] VITALS: BP 149/75
[2018-03-22] MEDS: INSULIN REGULAR, HUMAN 300 UNIT/3 ML VIAL SQ PRN (11:41)
[2018-03-22] MEDS: CEFTRIAXONE 1 G in IV DEXTROSE 5% 50 ML IV SCH (11:44)
--- NOTE | 2018-03-22 14:50 | NUR ---
IV D/C'D V/S STABLE REPORT CALLED TO [facility]. TRANSFERRED VIA AMBULANCE.
== END 2018-03-22 14:45 | DRG 917 ==
LOC: ER 19:54 → TELE 22:43 → MED 03-18 15:33
PROVIDERS: ADMIT Nurse Practitioner Acute Care; ATTEND Nurse Practitioner Acute Care
DX: T43.91XA Poisoning by unspecified psychotropic drug, accidental (unintentional), initial encounter (principal); G92 Toxic encephalopathy; E87.0 Hyperosmolality and hypernatremia; F05 Delirium due to known physiological condition; Y92.012 Bathroom of single-family (private) house as the place of occurrence of the external cause; R29.6 Repeated falls; E11.9 Type 2 diabetes mellitus without complications; Z79.4 Long term (current) use of insulin; F31.9 Bipolar disorder, unspecified; I10 Essential (primary) hypertension; E87.6 Hypokalemia; H02.402 Unspecified ptosis of left eyelid; Z79.899 Other long term (current) drug therapy; D72.829 Elevated white blood cell count, unspecified
CPT/HCPCS: 36415; 70030-TC; 70450; 70551; 71045; 80164; 80307; 83605; 83735; 84100; 84443; 85025; 85651; 85730; 87040; 87086; 92507; 92523; 92610; 93005; 97110; 97116; 97165; 97530; 97535; A4663; C1758; G0480; G0480-TC; J0696; J1650; J1815; J3490; J7030; J7050; J7060; Q9967

== ENCOUNTER 2019-03-31 23:30 | Emergency (ER) | payer OTHER ==
[~2019-03-31] VITALS: Ht 170.2 cm; Wt 73.9 kg
[~2019-03-31 23:30] MED LIST changes: -BLOO-140 IN; +CEPH500C2 PO; -DEXT50DI8 IV; +DIVA250T4 PO; +DIVA500T2 PO; -GLUC1VIA4 IJ; +INSU100V7 SQ; -LOSA50TA21 PO; +RISP1TAB7 PO; -TOLT4CAP PO
--- NOTE | 2019-03-31 23:50 | NUR ---
Patient ambulated with stable gait. Speech is clear, speaks in complete sentences. No neuro deficits. A/Ox4. Patient came for c/o sustaining a laceration to her right eyebrow s/p falling down stairs. Patient reports she was trying to pick something up while descending down the stair steps and toppled over and fell flat on the ground. Respiration even and unlabored, no cough no sob. Denies any lightheadedness, dizziness, n/v. Patient in bed at lowest position, sr upx2, call light within reach. Fall precautions implemented per protocol.
[2019-04-01] MEDS ORDERED: LIDOCAINE HCL 1% 20 ML VIAL IJ ONE (00:15)
[2019-04-01] MEDS ORDERED: TDAP DIPH,PERTUSS,TET VAC/PF 0.5 ML DISP.SYRIN IM ONE ×4 (00:15→02:49)
--- NOTE | 2019-04-01 00:31 | NUR ---
Patient out of unit for ct scan via [facility].
[2019-04-01 00:37] LABS: BILIRUBIN,DIRECT 0.1 mg/dL (0.0-0.2); BILIRUBIN,TOTAL 0.3 mg/dL (0.2-1.0); CREATININE 0.7 mg/dL (0.6-1.3); POTASSIUM 3.8 mmol/L (3.5-5.1); TOTAL PROTEIN, SERUM 6.9 g/dL (6.4-8.2)
[2019-04-01 00:48] LABS: BASOPHILS % (AUTO) 0.6 % (0.0-2.0); EOSINOPHILS # (AUTO) 0.1 K/uL (0.0-0.7); EOSINOPHILS % (AUTO) 1.1 % (0.0-7.0); HEMATOCRIT 40.5 % (31.2-41.9); HEMOGLOBIN 13.3 g/dL (10.9-14.3); LYMPHOCYTES # (AUTO) 1.7 K/uL (20.0-40.0); LYMPHOCYTES % (AUTO) 22.3 % (20.5-51.5); MEAN CORPUSCULAR HEMOGLOBIN 31.2 uug (24.7-32.8); MEAN CORPUSCULAR HGB CONC 33 g/dL (32.3-35.6); MEAN CORPUSCULAR VOLUME 94.6 fL (75.5-95.3); MONOCYTES # (AUTO) 0.4 K/uL (2.0-10.0); NEUTROPHILS # (AUTO) 5.2 K/uL (1.8-8.9); PLATELET COUNT (AUTO) 203 K/uL (179-408); RED BLOOD CELL COUNT(AUTO) 4.28 MIL/uL (3.63-4.92); WHITE BLOOD COUNT (AUTO) 7.5 K/uL (3.8-11.8)
--- NOTE | 2019-04-01 01:03 | NUR ---
ERMD started bedside suture
[2019-04-01] MEDS ORDERED: NEOMY/BACITRA/POLYMYXIN B OINT UD PACKET TP ONE ×2 (02:27→02:45)
[2019-04-01] MEDS ORDERED: LIDOCAINE 1%-EPI 1:100,000 20 ML VIAL TP ONE (02:45)
[2019-04-01 02:53] VITALS: BP 153/69
--- NOTE | 2019-04-01 02:53 | NUR ---
Patient discharged to home in stable conditon. Written and verbal after care instructions given. Patient verbalizes understanding of instructions. Patient ambulated with stable gait.
== END 2019-04-01 02:54 | disposition home or self-care (01) ==
LOC: ER 23:33
DX: S01.81XA Laceration without foreign body of other part of head, initial encounter (principal); E11.65 Type 2 diabetes mellitus with hyperglycemia; I10 Essential (primary) hypertension; F31.9 Bipolar disorder, unspecified; F20.9 Schizophrenia, unspecified; Z79.4 Long term (current) use of insulin; Z79.899 Other long term (current) drug therapy; W10.9XXA Fall (on) (from) unspecified stairs and steps, initial encounter; Y93.89 Activity, other specified; Y92.89 Other specified places as the place of occurrence of the external cause; Y99.8 Other external cause status
CPT/HCPCS: 12052; 36415; 70450; 70486; 80048; 80076; 85025; 90471; 90715; 93005; 99284; J3490 ×2; A4217; A4663

== ENCOUNTER 2019-04-08 15:00 | Emergency (ER) | payer OTHER ==
[~2019-04-08] VITALS: Ht 162.6 cm; Wt 68.0 kg
--- NOTE | 2019-04-08 15:18 | NUR ---
pt ambulating with steady gait with family. A&Ox4. here for suture removal. sutures noted above right eye. no redness / swelling noted around the site. denies any pain or discomfort at the site. no neural deficits noted. speech clear and able to follow commands. breathing even and unlabored, denies SOB. no cardiovascular distress noted. Denies any /GI distress noted. Fall precautions implemented per protocol. Bed low, s/r upx2, call light within reach.
--- NOTE | 2019-04-08 15:35 | NUR ---
ERMD at bedside for MSE and suture removal
--- NOTE | 2019-04-08 15:59 | NUR ---
Patient discharged to home in stable conditon. Written and verbal after care instructions given. Patient verbalizes understanding of instructions. patient ambulated with steady gait with son
[2019-04-08 16:00] VITALS: BP 124/79
== END 2019-04-08 16:00 | disposition home or self-care (01) ==
LOC: ER 15:00
DX: S01.111D Laceration without foreign body of right eyelid and periocular area, subsequent encounter (principal); I10 Essential (primary) hypertension; E11.9 Type 2 diabetes mellitus without complications; F31.9 Bipolar disorder, unspecified; Z79.4 Long term (current) use of insulin; Z79.899 Other long term (current) drug therapy; X58.XXXD Exposure to other specified factors, subsequent encounter
CPT/HCPCS: A4663

== ENCOUNTER 2019-05-11 15:54 | Emergency (ER) | payer OTHER ==
[~2019-05-11] VITALS: Ht 170.2 cm; Wt 72.6 kg
--- NOTE | 2019-05-11 16:10 | NUR ---
Dr Murphy at the bedside for MSE.
[2019-05-11] MEDS ORDERED: OMEP20CA11 PO (16:23)
[2019-05-11] MEDS ORDERED: INSU100C SQ (16:23)
[2019-05-11] MEDS ORDERED: FLUO40CA8 PO (16:23)
[2019-05-11] MEDS ORDERED: MEMA10TA PO (16:23)
[2019-05-11] MEDS ORDERED: ARIP20TA4 PO (16:23)
[2019-05-11] MEDS ORDERED: INSU100V7 SQ (16:23)
[2019-05-11] MEDS ORDERED: TOLT4CAP PO (16:23)
[2019-05-11] MEDS ORDERED: GABA-532 PO (16:23)
[2019-05-11] MEDS ORDERED: DIVA250T4 PO (16:23)
[2019-05-11] MEDS ORDERED: SIMV-46 PO (16:23)
[2019-05-11] MEDS ORDERED: MELO-107 PO (16:23)
[2019-05-11] MEDS ORDERED: LOSA50TA39 PO (16:23)
[2019-05-11 16:38] LABS: BASOPHILS # (AUTO) 0.1 K/uL (0.0-8.0); BASOPHILS % (AUTO) 0.3 % (0.0-2.0); EOSINOPHILS # (AUTO) 0.1 K/uL (0.0-0.7); EOSINOPHILS % (AUTO) 0.4 % (0.0-7.0); HEMATOCRIT 41.7 % (31.2-41.9); HEMOGLOBIN 13.6 g/dL (10.9-14.3); LYMPHOCYTES # (AUTO) 2.2 K/uL (20.0-40.0); LYMPHOCYTES % (AUTO) 14.3 % (20.5-51.5); MEAN CORPUSCULAR HEMOGLOBIN 30.6 uug (24.7-32.8); MEAN CORPUSCULAR HGB CONC 33 g/dL (32.3-35.6); MEAN CORPUSCULAR VOLUME 93.9 fL (75.5-95.3); MONOCYTES # (AUTO) 0.9 K/uL (2.0-10.0); NEUTROPHILS # (AUTO) 12.3 K/uL (1.8-8.9); PLATELET COUNT (AUTO) 259 K/uL (179-408); RED BLOOD CELL COUNT(AUTO) 4.44 MIL/uL (3.63-4.92); WHITE BLOOD COUNT (AUTO) 15.5 K/uL (3.8-11.8)
[2019-05-11 17:32] LABS: CARBON DIOXIDE 29 mmol/L (21-32); CHLORIDE 108 mmol/L (98-107); CREATININE 0.6 mg/dL (0.6-1.3); GLUCOSE 218 mg/dL (74-106); UREA NITROGEN, BLOOD 25 mg/dL (7-18)
[2019-05-11 17:46] LABS: THYROID STIMULATING HORMONE 0.532 mIU/mL (0.358-3.740)
[2019-05-11 17:48] LABS: ALANINE AMINOTRANSFERASE 45 U/L (14-59); ALKALINE PHOSPHATASE 100 U/L (50-136); ASPARTATE AMINOTRANSFERASE 105 U/L (15-37); BILIRUBIN,DIRECT 0.1 mg/dL (0.0-0.2); BILIRUBIN,TOTAL 0.3 mg/dL (0.2-1.0); TOTAL PROTEIN, SERUM 7.3 g/dL (6.4-8.2)
[2019-05-11 17:54] LABS: ACETAMINOPHEN < 2.0 ug/mL (10-30)
--- NOTE | 2019-05-11 18:22 | NUR ---
Attempted twice to collected urine with bedpan, not able. Fluids provided.
--- NOTE | 2019-05-11 18:35 | NUR ---
Recieved a call from [facility] care partners(pt's insurance) case management director,Lisa. Lisa stated she will speak to their MD for possible transfer.
--- NOTE | 2019-05-11 18:48 | NUR ---
Lisa(caser in), called back w/ some transfer info. Pt will be transfered to [facility], accepted by Dr Avendano. awaiting for room assignment.
--- NOTE | 2019-05-11 19:07 | NUR ---
Assumed care for patient, pt pending transfer at this time. Also pending urine, pt on bedpan at this time attempting to urinate.
--- NOTE | 2019-05-11 19:31 | NUR ---
Called Lisa regarding transfer info and pending at this time.
--- NOTE | 2019-05-11 19:43 | NUR ---
Pt to be transferred to [facility] room 208A
--- NOTE | 2019-05-11 19:49 | NUR ---
Report given to receiving RN Yenni. Pending transportation at this time.
[2019-05-11 20:24] LABS: *BILIRUBIN,URIN NEGATIVE (NEGATIVE); *BLOOD, URINE 1+ (NEGATIVE); *CLARITY,URINE SLIGHTLY CLOUDY (CLEAR); *COLOR,URINE YELLOW (YELLOW); *KETONES,URINE 1+ (NEGATIVE); *UROBILINOGEN,URINE 0.2 E.U./dl (NORMAL); LEUKOCYTE ESTERASE ,URINE 1+ (NEGATIVE); NITRITE, URINE NEGATIVE (NEGATIVE); PH,URINE 6.5 (5.0-8.0)
[2019-05-11 20:34] LABS: *AMPHETAMINE, URINE NEGATIVE (NEGATIVE); *BARBITURATE, URINE NEGATIVE (NEGATIVE); *CANNABINOID, URINE NEGATIVE (NEGATIVE); *COCCAINE, URINE NEGATIVE (NEGATIVE); *OPIATE, URINE NEGATIVE (NEGATIVE); *PHENCYCLIDINE SCREEN,URINE NEGATIVE (NEGATIVE)
[2019-05-11 20:35] LABS: UGLUCOSE 2+ (NEGATIVE)
[2019-05-11 20:38] LABS: BACTERIA,URINE FEW /HPF (NONE SEEN); MUCUS,URINE MANY /LPF (0-FEW); SQUAMOUS EPITHELIAL CELL,UR FEW /HPF (NONE SEEN)
--- NOTE | 2019-05-11 20:55 | NUR ---
Dr. Orozco made aware of patient's urine results, received orders to administer Rocephin 1G IV
[2019-05-11] MEDS ORDERED: CEFTRIAXONE /D5W 50ML IVPB **ER PYXIS IV ONE (20:59)
[2019-05-11] MEDS ORDERED: CEFTRIAXONE 1 G in IV DEXTROSE 5% 50 ML IV ONE (21:00)
--- NOTE | 2019-05-11 21:30 | NUR ---
Report given to [facility] staff for transfer, pt transferred in stable condition with left ac [address] NAD. Family and patient aware of plan of care. Patient Tranfers to [facility] Physician: Dr. Delaney Location: Room 208 A
== END 2019-05-11 21:45 | disposition short-term general hospital (02) ==
LOC: ER 15:54
DX: R41.82 Altered mental status, unspecified (principal); I10 Essential (primary) hypertension; E11.9 Type 2 diabetes mellitus without complications; F31.9 Bipolar disorder, unspecified; Z79.899 Other long term (current) drug therapy; Z79.4 Long term (current) use of insulin
CPT/HCPCS: 36415; 70450; 71045; 80048; 80076; 80307; 81000; 81001; 84443; 84484; 85025; 87086; 93005; 96365; 99285; G0480; G0481; J0696; 70030-TC; A4663

== ENCOUNTER 2020-05-29 13:05 | Inpatient (IN) | payer OTHER ==
[~2020-05-29] VITALS: Ht 170.2 cm; Wt 63.5 kg
[~2020-05-29 13:05] MED LIST changes: +ARIP20TA4 PO; -CEPH500C2 PO; +FLUO40CA8 PO; +GABA-532 PO; +INSU100C SQ; +LOSA50TA39 PO; +MELO-107 PO; +MEMA10TA PO; +OMEP20CA15 PO; +SIMV-46 PO; +TOLT4CAP PO
--- NOTE | 2020-05-29 13:40 | NUR ---
multiple bruise noted, left periorbital, both knees, bilateral toes. pt oriented to name and .
[2020-05-29] MEDS ORDERED: OXYC5CAP18 PO (13:53)
[2020-05-29] MEDS ORDERED: IV NORMAL SALINE 1000 ML BAG IV ONE (14:30)
[2020-05-29 15:15] LABS: CARBON DIOXIDE 28 mmol/L (21-32); CHLORIDE 105 mmol/L (98-107); CREATININE 0.6 mg/dL (0.6-1.3); GLUCOSE 227 mg/dL (74-106); POTASSIUM 3.3 mmol/L (3.5-5.1); UREA NITROGEN, BLOOD 23 mg/dL (7-18)
[2020-05-29 15:16] LABS: BASOPHILS # (AUTO) 0.1 K/uL (0.0-8.0); BASOPHILS % (AUTO) 0.4 % (0.0-2.0); EOSINOPHILS % (AUTO) 0.1 % (0.0-7.0); HEMATOCRIT 40.2 % (31.2-41.9); HEMOGLOBIN 13.5 g/dL (10.9-14.3); LYMPHOCYTES % (AUTO) 7.1 % (20.5-51.5); MEAN CORPUSCULAR HEMOGLOBIN 31.4 uug (24.7-32.8); MEAN CORPUSCULAR HGB CONC 34 g/dL (32.3-35.6); MEAN CORPUSCULAR VOLUME 93.7 fL (75.5-95.3); MONOCYTES # (AUTO) 0.8 K/uL (2.0-10.0); MONOCYTES % (AUTO) 5.7 % (0.0-11.0); NEUTROPHILS # (AUTO) 12.4 K/uL (1.8-8.9); NEUTROPHILS % (AUTO) 86.7 % (38.5-71.5); PLATELET COUNT (AUTO) 240 K/uL (179-408); RED BLOOD CELL COUNT(AUTO) 4.29 MIL/uL (3.63-4.92); WHITE BLOOD COUNT (AUTO) 14.4 K/uL (3.8-11.8)
[2020-05-29 15:20] LABS: ALANINE AMINOTRANSFERASE 32 U/L (14-59); ALKALINE PHOSPHATASE 126 U/L (50-136); ASPARTATE AMINOTRANSFERASE 22 U/L (15-37); BILIRUBIN,DIRECT 0.2 mg/dL (0.0-0.2); BILIRUBIN,TOTAL 0.7 mg/dL (0.2-1.0); TOTAL PROTEIN, SERUM 7.3 g/dL (6.4-8.2)
[2020-05-29] MEDS ORDERED: IV NORMAL SALINE 250 ML IV ONE (15:51)
[2020-05-29] MEDS ORDERED: IOHEXOL 300MG/ML 100 ML INFUS..BTL ONE (15:51)
[2020-05-29] MEDS ORDERED: SWABABLE VALVE TRANSFER SET EA MC ONE (15:51)
[2020-05-29] MEDS ORDERED: LORAZEPAM 2 MG/1 ML VIAL IV ONE (16:45)
--- NOTE | 2020-05-29 17:00 | NUR ---
Osiris Hoff, marriage and family social worker at bedside.
[2020-05-29] MEDS ORDERED: LORAZEPAM 2 MG/1 ML VIAL ONE (17:11)
[2020-05-29 17:28] LABS: CREATINE KINASE, TOTAL 296 U/L (26-192)
[2020-05-29 18:28] LABS: ETHANOL < 3 MG/DL (0-0)
--- NOTE | 2020-05-29 18:29 | NUR ---
Clinical Social Work Note Patient is altered and not able to cooperate with an assessment but admits she fell about two stories. [employer] report made with Officer Lisa, present in ED with another patient. He will take a report regarding patient's fall. Patient was brought in by her who appears concerned. Per Dr García patient is not medically clear. She may even need a higher level of care. Patient is altered. Tox screen is pending. She takes " pain medication". Patient has a psychiatric history. She is not clear for any sort of crisis evaluation at this point and needs medical clearance, CT scan etc.
--- NOTE | 2020-05-29 18:34 | NUR ---
officer Lisa from [employer] at bedside talking to pt.
[2020-05-29] MEDS ORDERED: Z GUARD REMEDY PASTE 57 GM TUBE TOP PRN (22:15)
[2020-05-29] MEDS ORDERED: ONDANSETRON 4 MG/2 ML VIAL IV PRN (22:15)
[2020-05-29] MEDS ORDERED: DEXTROSE 50% 50 ML DISP.SYRIN IV PRN (22:15)
[2020-05-29] MEDS ORDERED: MAGNESIUM HYDROXIDE 30 ML LIQUID UDC PO PRN (22:15)
[2020-05-29] MEDS ORDERED: ACETAMINOPHEN 325 MG TABLET PO PRN (22:15)
--- NOTE | 2020-05-29 22:33 | NUR ---
According to inpatient, there are no available beds for this patient. Will continue to monitor.
--- NOTE | 2020-05-30 01:40 | NUR ---
Patient transported to tele in stable condition.
[2020-05-30 02:00] VITALS: BP 138/69
--- NOTE | 2020-05-30 02:15 | NUR ---
ADMITTED THIS 70 Y.O. LADY FROM ER, COMING FROM HOME,FELL OUT OF THE 2ND FLOOR AND LANDED ON THE ROOF OF A CAR, ALERT/ORIENTED TO NAME ONLY.MULTIPLE STAGES OF HEALING BRUISES AND ABRASIONS NOTED, PHOTOSTAKEN,CT HEAD AND FACIAL SHOWED LEFT ORBITAL AND LEFT NASAL AREA,CT SPINE,NEGATIVE,ABDOMINAL AND PELVIS;NO ACUTE SOLID ORGAN INJURY,L3 AND L4 TRANSVERSE PROCESS FRACTURES, IINTRA MUSCULAR HEMORRHAGE TO RT HIP.MIDLINE ONRT.UPPER ARM PATENT AND INTACT G 18. ,RT FOOT XRAY SHOWED 1ST PROXIMAL PHALANX
--- NOTE | 2020-05-30 03:00 | NUR ---
PT IS ON TELE, VERY RESTLESS,,HAD A AHARD TIME PUTTING MONITOR, SHE KEPT TRING TO TAKE IT OUT.SKILLED ASSESSMENT DONE.
[2020-05-30 04:00] VITALS: BP 152/76
[2020-05-30] MEDS: HYDROCODONE/APAP 5-325MG TABLET PO PRN (06:13)
[2020-05-30] MEDS: BLOOD SUGAR DIAGNOSTIC 1 EACH STRIP VI SCH ×4 (06:31→21:27)
[2020-05-30 07:06] LABS: BASOPHILS % (AUTO) 0.3 % (0.0-2.0); EOSINOPHILS % (AUTO) 0.2 % (0.0-7.0); HEMATOCRIT 37.7 % (31.2-41.9); HEMOGLOBIN 12.4 g/dL (10.9-14.3); LYMPHOCYTES # (AUTO) 1.5 K/uL (20.0-40.0); LYMPHOCYTES % (AUTO) 11.4 % (20.5-51.5); MEAN CORPUSCULAR HEMOGLOBIN 30.9 uug (24.7-32.8); MEAN CORPUSCULAR HGB CONC 33 g/dL (32.3-35.6); MEAN CORPUSCULAR VOLUME 93.9 fL (75.5-95.3); MONOCYTES # (AUTO) 0.8 K/uL (2.0-10.0); MONOCYTES % (AUTO) 6.3 % (0.0-11.0); NEUTROPHILS # (AUTO) 10.6 K/uL (1.8-8.9); NEUTROPHILS % (AUTO) 81.8 % (38.5-71.5); PLATELET COUNT (AUTO) 210 K/uL (179-408); RED BLOOD CELL COUNT(AUTO) 4.01 MIL/uL (3.63-4.92); WHITE BLOOD COUNT (AUTO) 12.9 K/uL (3.8-11.8)
[2020-05-30 07:47] LABS: CARBON DIOXIDE 25 mmol/L (21-32); CHLORIDE 107 mmol/L (98-107); CHOLESTEROL 144 mg/dL (<200); CREATININE 0.5 mg/dL (0.6-1.3); GLUCOSE 175 mg/dL (74-106); HDL CHOLESTEROL 93 mg/dL (40-60); MAGNESIUM 1.9 mg/dL (1.8-2.4); POTASSIUM 3.1 mmol/L (3.5-5.1); TRIGLYCERIDES 52 MG/DL (30-150); UREA NITROGEN, BLOOD 19 mg/dL (7-18)
[2020-05-30 08:00] VITALS: BP 160/67
--- NOTE | 2020-05-30 08:00 | NUR ---
Awake, alert, oriented to self, confused, verbally responsive, attempting to get out of bed. Reoriented, bed alarm on
--- NOTE | 2020-05-30 10:00 | NUR ---
Received report from morning shift nurse. PT is in bed, awake AO X 2. Interacts when engaged to. Needs redirection frequently. Safety measures enforced frequently, call light within reach, bed low, semi-fowlers, and lock. Will continue to monitor Addendum: 05/30/20 at 1827 by ZORAN SMITH RN During report, nurse discharged from telemetry to med surg per 's order
[2020-05-30] MEDS: POTASSIUM CHLORIDE 20 MEQ TAB.PRT.SR PO SCH ×2 (10:38→11:54)
[2020-05-30] MEDS: INSULIN REGULAR, HUMAN 300 UNIT/3 ML VIAL SQ PRN ×4 (10:40→21:28)
[2020-05-30 11:35] VITALS: BP 138/62
--- NOTE | 2020-05-30 13:48 | NUR ---
DR CASAS MADE AWARE ABOUT PSYCH CONSULT, DR CASAS IS COVERING FOR DR MELENDEZ. LUMBAR SACRAL BRACE ORDERED FOR PATIENT
--- NOTE | 2020-05-30 15:00 | NUR ---
PT meet with Dr. Nash via [facility] for consult. New orders noted. Will endorse to tight cooper
[2020-05-30 15:19] VITALS: BP 144/71
[2020-05-30 15:45] LABS: THYROID STIMULATING HORMONE 1.372 mIU/mL (0.358-3.740)
[2020-05-30] MEDS ORDERED: NEUTRA PHOS PACKET PO ONE (16:00)
[2020-05-30] MEDS: ARIPIPRAZOLE 10 MG TABLET PO SCH (17:05)
[2020-05-30] MEDS: FLUOXETINE HCL 20 MG CAPSULE PO SCH (17:05)
--- NOTE | 2020-05-30 18:38 | NUR ---
PT is in bed, awake with no acute distress or no shortness of breath. Safety measure provided, call light within reach, bed low and lock. Will endorse report to processing analyst nurse
[2020-05-30 20:25] VITALS: BP 121/65
--- NOTE | 2020-05-30 22:00 | NUR ---
RECD PT IN BED, NO COMPLAINTS MADE, AWAKE,NEEDS ATTENDED TO.NO DISTRESS NOTED,QUIETLY RESTING, CALL LITE W/I REACH,SAFETY PREC OBSERVED AND MAINTAINED.KEPT WARM AND COMFORTABLE.
--- NOTE | 2020-05-31 02:18 | NUR ---
REPOSITIONED IN BED, SLEPT ON AND OFF., PLEASANTLY CONFUSED.
[2020-05-31] MEDS: HYDROCODONE/APAP 5-325MG TABLET PO PRN (03:20)
--- NOTE | 2020-05-31 03:21 | NUR ---
PT MOANING AND W/ FACIAL GRIMACE, NORCO GIVEN ORDERED ,UNABLE TO SCAN MED.WILL CONTINUE TO MONITOR CONDITION.
[2020-05-31 04:00] VITALS: BP 151/73
--- NOTE | 2020-05-31 04:21 | NUR ---
APPEARS SLEEPING, NO VOICED COMPLAINTS, 2 RAILS UP, BED ALARM ON, HANDLED GENTLY.
[2020-05-31 07:31] LABS: CREATININE 0.6 mg/dL (0.6-1.3); PHOSPHOROUS 2.5 mg/dL (2.5-4.9); POTASSIUM 3.5 mmol/L (3.5-5.1)
[2020-05-31 07:36] LABS: BASOPHILS % (AUTO) 0.2 % (0.0-2.0); EOSINOPHILS # (AUTO) 0.1 K/uL (0.0-0.7); EOSINOPHILS % (AUTO) 0.5 % (0.0-7.0); HEMATOCRIT 37.3 % (31.2-41.9); HEMOGLOBIN 12.3 g/dL (10.9-14.3); LYMPHOCYTES # (AUTO) 1.2 K/uL (20.0-40.0); LYMPHOCYTES % (AUTO) 10.5 % (20.5-51.5); MAGNESIUM 1.9 mg/dL (1.8-2.4); MEAN CORPUSCULAR HEMOGLOBIN 30.9 uug (24.7-32.8); MEAN CORPUSCULAR HGB CONC 33 g/dL (32.3-35.6); MEAN CORPUSCULAR VOLUME 93.9 fL (75.5-95.3); MONOCYTES # (AUTO) 0.8 K/uL (2.0-10.0); NEUTROPHILS # (AUTO) 9.1 K/uL (1.8-8.9); NEUTROPHILS % (AUTO) 81.8 % (38.5-71.5); PLATELET COUNT (AUTO) 212 K/uL (179-408); RED BLOOD CELL COUNT(AUTO) 3.98 MIL/uL (3.63-4.92); WHITE BLOOD COUNT (AUTO) 11.2 K/uL (3.8-11.8)
[2020-05-31] MEDS: BLOOD SUGAR DIAGNOSTIC 1 EACH STRIP VI SCH ×4 (07:55→21:30)
--- NOTE | 2020-05-31 08:22 | NUR ---
NO SSX OF DIABETIC CRISIS. SLEPT INTERMITTENTLY. MONITORED CLOSELY.HIGH RISK FOR FALL,ALL PRECAUTIONARY MEASURES OBSERVED AND MAINTAINED.MULTIPLE SKIN ISSUES ARE DOCUMENTED W/ PHOTOS IN CHART.
[2020-05-31] MEDS: ARIPIPRAZOLE 10 MG TABLET PO SCH (09:01)
[2020-05-31] MEDS: FLUOXETINE HCL 20 MG CAPSULE PO SCH (09:01)
[2020-05-31] MEDS: INSULIN REGULAR, HUMAN 300 UNIT/3 ML VIAL SQ PRN ×4 (09:09→21:33)
[2020-05-31 12:00] VITALS: BP 153/57
--- NOTE | 2020-05-31 12:41 | NUR ---
WOUND CARE CONSULT: CONSULT REQUEST FROM NURSING STAFF FOR LEFT GREAT TOE INTACT BLISTER, PRESENT ON ADMISSION. RECOMMEND DPM CONSULT. DR ESPINOZA NOTIFIED OF CONSULT REQUEST. IN AGREEMENT WITH PLAN OF CARE.
[2020-05-31 16:00] VITALS: BP 116/56
--- NOTE | 2020-05-31 16:36 | NUR ---
Clinical Social Work Note Patient is a 70 year old woman who came in via ED after a fall from two stories. She was altered and unable to provide information. Patient has a history of heavy opiate abuse and schizoaffective disorder. MICHELLE , Officer Lisa, present in ED, took a report after this social work specialist requested he do so in view of the nature of her accident. Patient is an unreliable historian. Dr Nash did psychiatry consult on this patient. Her Abilify and Prozac was continued by Dr Nash. Patient was seen by this medical technical writer today where she is psychomotor retarded, speaking softly and not fully oriented. Patient is oriented to name and place today. She did not know the year. Case was discussed with Dr Nash who feels patient could benefit from our MHU unit once she is medically stable. When questioned about her jumping down two floors, patient said " I was sad". She denies that she was suicidal. Her jump may have been a result of her psychosis. Nevertheless, her behavior is cause for concern and was life-endangering. Plan: Dr Nash thinks patient could benefit from MHU once she is medically stable. Crisis team can evaluate when patient is more clear.Patient denies that she is suicidal. Nevertheless, she injured herself seriously as a result of alteration in thought process due to a multiplicity of factors. Plan: Crisis team will be called to evaluate patient for MHU once she is medically clear.
[2020-05-31] MEDS: LOSARTAN POTASSIUM 50 MG TABLET PO SCH (17:01)
[2020-05-31] MEDS: SIMVASTATIN 20 MG TABLET PO SCH (17:08)
[2020-05-31 20:15] VITALS: BP_SYST 132; BP_SYST 165; BP_DIAS 65; BP_DIAS 95
--- NOTE | 2020-05-31 21:00 | NUR ---
RECEIVED PATIENT IN BED AWAKE ALERT ORIENTED AWARE AND COOPERATIVE VERBALLY RESPONDED WHEN SPOKEN TO BUT DID NOT CARRY ON A CONVERSATION NO S/S OF HYPO/HYPERGLYCEMIC REACTIONS AT THIS TIME.FACE WITH BRUISES RELATED TO HER FALL BUT DENIES DISCOMFORTS AT THIS TIME RIGHT AND LEFT GREAT TOE WITH DARRIN SPLINT WITH ADEQUATE CIRCULATION AT THIS TIME CALL LIGHTS AND PERSONAL BELONGINGS ARE WITHIN EASY REACH WILL CONTINUE TO OBSERVE AND PROVIDE COMFORT
[2020-05-31] MEDS: INSULIN GLARGINE,HUM 300 UNITS/3 ML CARTRIDGE SQ SCH (21:32)
[2020-06-01 04:24] VITALS: BP 161/66
[2020-06-01] MEDS: BLOOD SUGAR DIAGNOSTIC 1 EACH STRIP VI SCH ×4 (06:12→21:30)
--- NOTE | 2020-06-01 06:21 | NUR ---
SLEPT AT LONG INTERVALS EASILY AROUSABLE DENIES PAIN OR DISCOMFORTS AT THIS TIME ASSISTED WITH REPOSITIONING HAS FLAT AFFECT AT TIMES MADE COMFORTABLE WILL CONTINUE TO OBSERVE.
--- NOTE | 2020-06-01 07:03 | NUR ---
Received patient sleeping in bed. Patient shows no sign of distress at this time. Safety precautions are in place. Will continue to monitor.
[2020-06-01] MEDS: INSULIN REGULAR, HUMAN 300 UNIT/3 ML VIAL SQ PRN ×4 (08:09→22:52)
[2020-06-01] MEDS: ARIPIPRAZOLE 10 MG TABLET PO SCH (09:04)
[2020-06-01] MEDS: FLUOXETINE HCL 20 MG CAPSULE PO SCH (09:04)
[2020-06-01] MEDS: LOSARTAN POTASSIUM 50 MG TABLET PO SCH (09:11)
--- NOTE | 2020-06-01 11:03 | NUR ---
Clinical Social Work Note Patient's wants to take her home once she is medically clear which may be later today. He says she will follow up with Leta Luis NP for her Abilify monitoring. he said that patient was upset that her 97 year old aunt a few weeks ago. He will supervise her and let her call her sister that support her. Patient denies that she is suicidal. Abilify and anti-depressant was resumed by Dr Nash. ([phone]) will take responsibility for her care and wants to pick her up and take her home once she is medically clear today. Dr Tian was notified of 's wish by this consumer loan underwriter and he also spoke to her , Armando, about discharge. Patient will follow up with her PMD, Stephanie, for her medical issues and will ensure this. Advised Madie negron RN of this plan. Patient will not be coming to [facility]. Dr Nash was notified. Sally, manager case management was also notified of this plan Plan: Sally manager case management call , Armando, ) once patient is medically clear per Dr Tian's order today. is on standby. has locked sliding doors with a francis so that patient will be safe. will monitor her medication regimen. He denies that she is overusing any pain meds. confirmed " he will be in total control of the situation".
[2020-06-01 11:48] VITALS: BP 158/66
[2020-06-01 14:37] LABS: *BILIRUBIN,URIN 1+ (NEGATIVE); *BLOOD, URINE NEGATIVE (NEGATIVE); *CLARITY,URINE CLEAR (CLEAR); *COLOR,URINE DARK YELLOW (YELLOW); *KETONES,URINE 1+ (NEGATIVE); LEUKOCYTE ESTERASE ,URINE NEGATIVE (NEGATIVE); NITRITE, URINE NEGATIVE (NEGATIVE); PH,URINE 6.5 (5.0-8.0); UGLUCOSE 2+ (NEGATIVE)
--- NOTE | 2020-06-01 15:30 | NUR ---
Called egg caser to find out how to get lumbar sacral brace for patient. Was referred to contracted company [employer] , phone numbers [phone] and [phone] and to fax order to facility with patient's height and weight. Number call yielded no response. Will endorse to oncoming nurse to follow up.
[2020-06-01 15:57] VITALS: BP 125/60
[2020-06-01] MEDS: SIMVASTATIN 20 MG TABLET PO SCH (18:26)
--- NOTE | 2020-06-01 19:08 | NUR ---
Patient resting in bed. No sign of distress noted. All medications given as ordered. Safety precautions are in place with call light and belongings in reach. Will endorse to oncoming nurse.
[2020-06-01 20:00] VITALS: BP 127/57
--- NOTE | 2020-06-01 20:00 | NUR ---
RECD PT IN BED, 2 RAILS UP ON BOTH SIDES, CALLLITE W/I REACH, NEEDS ATTENDED TO. ATTEMPTS OF GETTING OUT OF BED NOTED EARLIER,SAFETY PRECAUTIONS OBSERVED AND MAINTAINED. INCONTINENT OF LARGE AMT OF URINE, CLEANED AND KEPT DRY,KEPT WARM AND COMFORTABLE.
[2020-06-01] MEDS: INSULIN GLARGINE,HUM 300 UNITS/3 ML CARTRIDGE SQ SCH (22:45)
[2020-06-01 22:46] LABS: BACTERIA,URINE NONE SEEN /HPF (NONE SEEN); CALCIUM OXALATE CRYSTALS,UR MANY /HPF (NONE SEEN); RBC,URINE 0-3 /HPF (0-3); SQUAMOUS EPITHELIAL CELL,UR FEW /HPF (NONE SEEN); WBC,URINE 0-3 /HPF (0-3)
--- NOTE | 2020-06-02 07:30 | NUR ---
Received PT in bed, awake and oriented to name. Easy to redirect. PT stated that they had a good sleep. No acute distress or no shortness of breath noted. Will continue to monitor. Safety measures provided, call light within reach, bed low and lock.
[2020-06-02 08:00] VITALS: BP 140/70
[2020-06-02] MEDS: BLOOD SUGAR DIAGNOSTIC 1 EACH STRIP VI SCH ×3 (08:17→17:03)
[2020-06-02] MEDS: FLUOXETINE HCL 20 MG CAPSULE PO SCH (08:18)
[2020-06-02] MEDS: ARIPIPRAZOLE 10 MG TABLET PO SCH (08:18)
[2020-06-02] MEDS: INSULIN REGULAR, HUMAN 300 UNIT/3 ML VIAL SQ PRN ×3 (08:21→17:19)
[2020-06-02 08:22] VITALS: BP 156/73
[2020-06-02] MEDS: LOSARTAN POTASSIUM 50 MG TABLET PO SCH (08:22)
--- NOTE | 2020-06-02 10:45 | NUR ---
PT seen by Dr. Campbell and plan for discharge. Order for lumbar back brace placed with [facility]. Will follow up. PT's aware of discharge and plans to pick her up later today.
--- NOTE | 2020-06-02 13:00 | NUR ---
PT seems restless and wants to get out of bed. legs hanging over the bed. Repositioned PT and reinforced safety measures. call light within reach, bed low and lock. Will continue to monitor.
[2020-06-02] MEDS: SIMVASTATIN 20 MG TABLET PO SCH (17:18)
--- NOTE | 2020-06-02 18:06 | NUR ---
PT is in bed with safety measures. Paperwork done and waiting for to draft roller picker. All belongings are packed up and PT is dressed. No acute distress or no shortness of breath noted. PT seems calm and relax. Cooperative but needs redirection.
== END 2020-06-02 22:28 | disposition home health service (06) | DRG 551 ==
LOC: ER 13:18 → TELE3 05-30 00:24 → MEDSURG3 05-30 10:34
PROVIDERS: ADMIT Student in an Organized Health Care Education/Training Program; ATTEND Internal Medicine
PROC: 05H533Z Insertion of Infusion Device into Right Subclavian Vein, Percutaneous Approach (ICD-10-PCS; principal; 2020-05-29)
PROC: B546ZZA Ultrasonography of Right Subclavian Vein, Guidance (ICD-10-PCS; 2020-05-29)
DX: S32.039A Unspecified fracture of third lumbar vertebra, initial encounter for closed fracture (principal); G92 Toxic encephalopathy; S02.82XA Fracture of other specified skull and facial bones, left side, initial encounter for closed fracture; S22.32XA Fracture of one rib, left side, initial encounter for closed fracture; S02.32XA Fracture of orbital floor, left side, initial encounter for closed fracture; S32.049A Unspecified fracture of fourth lumbar vertebra, initial encounter for closed fracture; S02.2XXA Fracture of nasal bones, initial encounter for closed fracture; W17.89XA Other fall from one level to another, initial encounter; D72.829 Elevated white blood cell count, unspecified; Y93.9 Activity, unspecified; Y92.008 Other place in unspecified non-institutional (private) residence as the place of occurrence of the external cause; E87.6 Hypokalemia; E04.1 Nontoxic single thyroid nodule; S92.411A Displaced fracture of proximal phalanx of right great toe, initial encounter for closed fracture; M85.80 Other specified disorders of bone density and structure, unspecified site; S92.402A Displaced unspecified fracture of left great toe, initial encounter for closed fracture; S90.422A Blister (nonthermal), left great toe, initial encounter; E11.9 Type 2 diabetes mellitus without complications; R40.2242 Coma scale, best verbal response, confused conversation, at arrival to emergency department; R40.2362 Coma scale, best motor response, obeys commands, at arrival to emergency department; F25.0 Schizoaffective disorder, bipolar type; E83.39 Other disorders of phosphorus metabolism; I10 Essential (primary) hypertension; D72.828 Other elevated white blood cell count; Z79.4 Long term (current) use of insulin; S30.0XXA Contusion of lower back and pelvis, initial encounter
CPT/HCPCS: 36415; 70450; 70486; 71045; 71250; 72125; 73630; 83605; 83735; 84100; 84443; 85025; 85730; 86850; 86900; 86901; A4663; C1758; G0378; G0480; J1815; J2060; J7030; J7050; Q9967; U0003